=== PATIENT | female | born 1995 | race Caucasian/White ===

== ENCOUNTER 2016-10-06 21:23 | Emergency (ER) | payer OTHER ==
[2016-10-06 21:29] VITALS: BP 109/70; PULSE 70; RESP 16; TEMP 97.6; O2SAT 99
--- NOTE | 2016-10-06 21:59 | C.PDOC ---
History Of Present Illness 20 yo female c/o left shoulder pain and neck pain for 4 days. She believes she "slept wrong." No trauma. No change in sensation. No chest pain or SOB. Has not taken an pain medicine today. Time Seen by Provider: 10/06/16 21:38 Chief Complaint (Nursing): Upper Extremity Problem/Injury History Per: Patient History/Exam Limitations: no limitations Onset/Duration Of Symptoms: Days Current Symptoms Are (Timing): Still Present Past Medical History Vital Signs: Last Vital Signs Temp 97.6 F 10/06/16 21:26 Pulse 70 10/06/16 21:26 Resp 16 10/06/16 21:26 BP 109/70 10/06/16 21:26 Pulse Ox 99 10/06/16 21:59 Family History: States: Unknown Family Hx - Social History Hx Alcohol Use: No Hx Substance Use: No - Immunization History Hx Tetanus Toxoid Vaccination: No Hx Influenza Vaccination: No Hx Pneumococcal Vaccination: No Review Of Systems Except As Marked, All Systems Reviewed And Found Negative. Cardiovascular: Negative for: Chest Pain Respiratory: Negative for: Shortness of Breath Musculoskeletal: Positive for: Shoulder Pain Physical Exam - Physical Exam Appears: Well, Non-toxic, No Acute Distress Skin: Normal Color, Warm, Dry Head: Atraumatic, Normacephalic Eye(s): bilateral: Normal Inspection, EOMI Nose: Normal Oral Mucosa: Moist Neck: Normal, Normal ROM, Supple Chest: Symmetrical Cardiovascular: Rhythm Regular Respiratory: Normal Breath Sounds Back: Normal Inspection Extremity: Normal ROM, Tenderness (diffuse to left shoulder and left trapezius with muscle spasm), Capillary Refill (<2 sec), No Swelling Extremity: Bilateral: Atraumatic, Normal Color And Temperature, Normal ROM Pulses: Left Radial: Normal, Right Radial: Normal Neurological/Psych: Oriented x3, Normal Speech, Normal Motor (5/5 against resistance), Normal Sensation ED Course And Treatment O2 Sat by Pulse Oximetry: 99 Progress Note: Pt was offered XR and medication and declined. Instructed RIce and follow up with PMD in 1-2 days. Disposition - Disposition Disposition: HOME/ ROUTINE Disposition Time: 21:57 Condition: STABLE Additional Instructions: Follow up with primary medical doctor in 1-3 days without fail for further evaluation. Take medications as prescribed. Return to the emergency department at any time if symptoms persist or worsen. Prescriptions: Naproxen [Naprosyn] 1 tab PO BID PRN #20 tab PRN Reason: Pain Instructions: Muscle Strain (ED) Forms: [facility] (Wallisian) - Clinical Impression Clinical Impression: Muscle spasm, Shoulder strain
== END 2016-10-06 22:07 | disposition home or self-care (01) ==
LOC: C.ER 21:23
DX: S46.912A Strain of unspecified muscle, fascia and tendon at shoulder and upper arm level, left arm, initial encounter (principal); X58.XXXA Exposure to other specified factors, initial encounter; M62.838 Other muscle spasm